=== PATIENT | male | born 1935 | race Asian ===

== ENCOUNTER 2018-03-16 18:13 | Inpatient (IN) | payer OTHER ==
[~2018-03-16] VITALS: Ht 152.4 cm; Wt 44.6 kg
[2018-03-16 19:21] LABS: CALCIUM 8.7 mg/dL (8.5-10.1); CARBON DIOXIDE 25.4 mmol/L (21-32); CHLORIDE SERUM 107 mmol/L (98-107); CREATININE SERUM 2.1 mg/dL (0.7-1.3); GLUCOSE SERUM 106 mg/dL (74-106); POTASSIUM SERUM 4.4 mmol/L (3.5-5.1); SODIUM SERUM 141 mmol/L (136-145)
[2018-03-16 19:24] LABS: BASOPHIL % 0.5 % (0-2); PLATELET COUNT 152 x10^3mcL (130-400); RED CELL DISTRIBUTION WIDTH 14.2 % (11.5-14.5)
[2018-03-16 19:26] LABS: ALKALINE PHOSPHATASE 63 U/L (46-116); ALT/SGPT 9 U/L (16-63); AST/SGOT 12 U/L (15-37); BILIRUBIN TOTAL 0.37 mg/dL (0.20-1.00); TOTAL PROTEIN, SERUM 7.4 g/dL (6.4-8.2)
[2018-03-16 19:27] LABS: ALBUMIN 3.2 g/dL (3.4-5.0)
[2018-03-16 20:06] LABS: MAGNESIUM 2.3 mg/dL (1.8-2.4); PHOSPHOROUS 3.2 mg/dL (2.5-4.9)
[2018-03-16 20:15] LABS: T3 TOTAL 0.9 ng/mL
[2018-03-16 20:26] LABS: FREE T4 0.95 ng/dL (0.76-1.46); FREE THYROXINE INDEX 2.2 ug/dL (1.4-4.5); T4(THYROXINE) 6.2 ug/dL (4.7-13.3)
[2018-03-16 20:44] VITALS: BP 167/73
[2018-03-16 20:50] VITALS: Ht 152.4 cm; Wt 44.6 kg
[2018-03-16 21:11] LABS: IRON 24 ug/dL (65-170); TOTAL IRON BINDING CAPACITY 196 ug/dL (250-450)
[2018-03-16 21:29] LABS: RED BLOOD CELLS 3.26 M/mm3 (4.52-5.90)
[2018-03-16 23:35] VITALS: BP 160/76
[2018-03-16 23:57] LABS: microscopic required? NO
[2018-03-17 00:08] LABS: urine erythrocyte NEGATIVE (NEGATIVE)
[2018-03-17 00:36] LABS: AMPHETAMINE QUAL UR NONE DETECTED (See below)
[2018-03-17 05:50] VITALS: BP 140/71
[2018-03-17 06:35] LABS: BASOPHIL % 0.5 % (0-2); PLATELET COUNT 136 x10^3mcL (130-400); RED CELL DISTRIBUTION WIDTH 14.2 % (11.5-14.5)
[2018-03-17 06:43] LABS: CALCIUM 8.3 mg/dL (8.5-10.1); CARBON DIOXIDE 19.9 mmol/L (21-32); CHLORIDE SERUM 111 mmol/L (98-107); CHOLESTEROL 144 mg/dL (<200); CHOLESTEROL/HDL RATIO 3.8; CREATININE SERUM 1.9 mg/dL (0.7-1.3); GLUCOSE SERUM 90 mg/dL (74-106); HDL CHOLESTEROL 38 mg/dL (40-60); MAGNESIUM 2.2 mg/dL (1.8-2.4); PHOSPHOROUS 3.5 mg/dL (2.5-4.9); POTASSIUM SERUM 4.5 mmol/L (3.5-5.1); SODIUM SERUM 141 mmol/L (136-145); TRIGLYCERIDES 71 mg/dL (<150)
[2018-03-17 09:40] VITALS: BP 144/62
[2018-03-17 13:20] VITALS: BP 148/69
[2018-03-17 16:39] VITALS: BP 114/75
[2018-03-17 20:00] VITALS: BP 155/68
[2018-03-17 21:39] VITALS: BP 145/74
[2018-03-18 05:39] VITALS: BP 167/87
[2018-03-18 06:35] LABS: BASOPHIL % 0.6 % (0-2); PLATELET COUNT 137 x10^3mcL (130-400); RED CELL DISTRIBUTION WIDTH 13.8 % (11.5-14.5)
[2018-03-18 06:40] VITALS: BP 154/80
[2018-03-18 07:06] LABS: CALCIUM 8.6 mg/dL (8.5-10.1); CHLORIDE SERUM 111 mmol/L (98-107); CREATININE SERUM 1.7 mg/dL (0.7-1.3); GLUCOSE SERUM 87 mg/dL (74-106); PHOSPHOROUS 3.7 mg/dL (2.5-4.9); POTASSIUM SERUM 4.3 mmol/L (3.5-5.1); SODIUM SERUM 142 mmol/L (136-145)
[2018-03-18 09:59] VITALS: BP 153/82
[2018-03-18 12:33] VITALS: BP 141/67
[2018-03-18] MEDS ORDERED: FLO4 PO (16:31)
[2018-03-18] MEDS ORDERED: CLINDAMYCIN HC300 MG PO (16:32)
[2018-03-18] MEDS ORDERED: LAC PO (16:32)
[2018-03-18] MEDS ORDERED: LEVAQUIN750 MG PO (16:32)
[2018-03-18] MEDS ORDERED: NOR10T PO ×2 (16:45→16:52)
[2018-03-18 17:44] VITALS: BP 102/75
[2018-03-18 18:30] VITALS: BP 102/75
== END 2018-03-18 19:56 | disposition home health service (06) | DRG 602 ==
LOC: ED 18:13 → DU 19:34
PROVIDERS: Emergency Medicine; Family Medicine
DX: L03.115 Cellulitis of right lower limb (principal); N17.0 Acute kidney failure with tubular necrosis; E43 Unspecified severe protein-calorie malnutrition; Z68.1 Body mass index [BMI] 19.9 or less, adult; N18.4 Chronic kidney disease, stage 4 (severe); J44.9 Chronic obstructive pulmonary disease, unspecified; I12.9 Hypertensive chronic kidney disease with stage 1 through stage 4 chronic kidney disease, or unspecified chronic kidney disease; D64.9 Anemia, unspecified; M10.9 Gout, unspecified; F17.210 Nicotine dependence, cigarettes, uncomplicated
CPT/HCPCS: 83880; 84439; 90715; 97110-GP; 97535-GP; 99406; J0696; J1885; J2001; J2270; J3490; J7030; J7040; Q0092